=== PATIENT | female | born 1960 | race Caucasian/White ===

== ENCOUNTER 2019-05-07 07:59 | Outpatient (CLI) | payer OTHER, SELFPAY ==
--- NOTE | 2019-05-19 05:51 | SLEEP_ITS ---
Home Sleep Test DATE OF STUDY: 05/07/2019 ORDERING PHYSICIAN: Dolly Mensah MD. REASON FOR STUDY: Hypersomnolence, atrial fibrillation. HISTORY: This patient is a 58-year-old female, 67 inches tall, weighing 320 pounds with a body mass index of 50.1. She had atrial fibrillation and underwent cardioversion. She rarely snores and it is never loud enough that others complain about it. She does not have trouble sleeping with a cold. She does not wake up at night gasping for breath or have witnessed breathing problems reported to her by others. She rarely falls asleep during the daytime. She denies sweating excessively at night or noticing her heart pounding or beating irregularly at night. She does not fall asleep involuntarily or while driving. She does not have loss of muscle tone with strong emotion and does not have daytime difficulties due to excessive sleepiness. She does not have paralysis on waking or falling asleep and does not have vivid dreamlike scenes upon awakening or falling asleep. She is never afraid to go to sleep. She does not have nightmares. She rarely remembers her dreams. She occasionally has racing thoughts. She does not have feelings of sadness or depression. She occasionally has anxiety. She does not have muscular tension, noticed parts of her body jerking, does not kick at night and does not have crawly achy feelings in the legs. She does not have leg pain at night. She does not have morning jaw pain. She denies grinding her teeth. She is not bothered by pain during the day nor at night. She does not wake up feeling stiff in the morning with sore achy muscles. Bedtime is between 9:30 and 10, waking up once or more at night for 5 minutes. During this time, she will urinate. She wakes in the morning at 5 a.m. On weekends, she goes to bed between 11 and 12 and will awake between 6 and 7 a.m. She does not take naps. However, if she does take a nap, a short nap is refreshing. She feels better in the morning than other times of day. MEDICAL COMORBIDITIES: Hypertension, atrial fibrillation, hypothyroidism, chronic lower extremity edema, morbid obesity. MEDICATIONS: 1. Carvedilol 12.5 mg b.i.d. 2. Xarelto 20 mg a day. 3. Lisinopril 5 mg a day. 4. Synthroid 112 mcg, two 2 daily. HABITS: Never smoked tobacco. No caffeine or alcohol. No recreational drugs. DESCRIPTION OF THE STUDY: On the Hamilton Sleepiness Scale, her score is 5. This was conducted as an unattended portable home sleep test using 4 channel monitoring including respiratory effort channel, snoring channel, oxygen saturation channel, and heart rate channel. This study was scored using [facility] guidelines. Her Hamilton score is 5. Duration of the study is 6 hours 5 minutes. Her apnea-hypopnea index is 8. Her oxygen desaturation index is 7.4. Minimum desaturation is 80%. The patient had 47 hypopneas, 991 flow limited breaths without snoring, 57 flow limited breaths with snoring and 1323 snoring events. She had 48 desaturations and spent 20 minutes or 5% of the study below 88%. Her minimum pulse was 59, maximum pulse 97. IMPRESSION: 1. This home sleep test shows mild obstructive sleep apnea syndrome, G47.66 with an AHI of 8 and with her medical comorbidity including hypertension, she is a candidate to proceed with a CPAP titration. The patient had deep desaturations to 80% and these were periodic throughout the study associated with spikes in heart rate. She would be a better candidate for an in-lab study than autotitration based on her cardiac history. 2. Elevated body mass index 50.1, consistent with severe morbid obesity. 3. Atrial fibrillation. 4. Hypertension. 5. Chronic anticoagulation. 6. Hypothyroidism. 7. Chronic lower extremity edema.
== END 2019-05-07 08:00 | disposition home or self-care (01) ==
LOC: ANHCSM 08:00
PROVIDERS: PCP Family Medicine; Visit Provider Internal Medicine Cardiovascular Disease
DX: G47.10 Hypersomnia, unspecified (principal); I48.91 Unspecified atrial fibrillation; I48.0 Paroxysmal atrial fibrillation
CPT/HCPCS: 95806

== ENCOUNTER 2019-05-09 07:41 | Outpatient (CLI) | payer OTHER, SELFPAY ==
--- NOTE | ~2019-05-09 | MM_ITS ---
EXAMINATION: MM screening [facility] BI w marcellus HISTORY: Screening mammogram TECHNIQUE: Craniocaudal and mediolateral oblique 3-D tomosynthesis images were obtained and synthetic 2-D images were generated. CAD analysis was submitted and interpreted. COMPARISON: Comparison to multiple prior studies sequentially, with oldest reviewed study dated 03/2013. BREAST PARENCHYMAL COMPOSITION: There are scattered areas of fibroglandular density. FINDINGS: Stable bilateral breast mass cyst and benign-appearing calcifications. There is no evidence of suspicious mass, calcification, or architectural distortion to suggest malignancy in either breas t. There has been no suspicious interval change. IMPRESSION: 1. No mammographic evidence of malignancy. 2. Recommend routine screening mammography in one year. BI-RADS Category 2: Benign finding(s). Reviewed, dictated and finalized at location A. PER
== END 2019-05-09 07:42 | disposition home or self-care (01) ==
LOC: ANHIMG 07:42
PROVIDERS: PCP Family Medicine; Visit Provider Family Medicine
DX: Z12.31 Encounter for screening mammogram for malignant neoplasm of breast (principal)
CPT/HCPCS: 77063; 77067

== ENCOUNTER 2019-07-24 00:28 | Day surgery (SDC) | payer OTHER, SELFPAY ==
[2019-07-20 14:06] VITALS: BMI 51.7
[2019-07-24 07:32] VITALS: BMI 51.7
[2019-07-24 07:40] VITALS: BP 140/103; PULSE 81; RESP 16; TEMP 37.3; O2SAT 99
[2019-07-24] MEDS: LACTATED RINGERS 1,000 ML 150 ML IV CONT (07:55)
--- NOTE | 2019-07-24 08:16 | PM.HPGS ---
History of Present Illness History of Present Illness Consent: Risks, benefits, and alternatives have been discussed and questions answered. Patient agrees to proceed with procedure. Chief complaint: neoplasm screening Narrative: Deb Farris is a 59 year old female here for screening colonoscopy PMFSH Family History Family History Mother Patient's mother is in good health Father Family history of malignant melanoma Grandparent Family history of malignant neoplasm of breast Social History Social History Smoking status: Never smoker Alcohol intake: current Substance use: never Gender identity (if verbalized by the patient): Female Meds Home Medications and Allergies Home Medications Medication Instructions Recorded Confirmed Type Multivitamin 50 Plus 1 tablet PO DAILY 03/04/19 07/24/19 History Xarelto 20 mg PO QPM 03/04/19 07/24/19 History biotin 1 mg PO DAILY 03/04/19 07/24/19 History carvedilol 12.5 mg PO BID 03/04/19 07/24/19 History levothyroxine [Synthroid] 112 mcg PO DAILY 03/04/19 07/24/19 History lisinopril 5 mg PO DAILY 03/04/19 07/24/19 History melatonin 3 mg PO HS PRN 03/04/19 07/24/19 History potassium gluconate 550 mg PO DAILY 03/04/19 07/24/19 History zinc gluconate 50 mg PO DAILY 03/04/19 07/24/19 History Allergies Allergy/AdvReac Type Severity Reaction Status Date / Time No Known Allergies Allergy Verified 07/24/19 07:24 Vital Signs Vital Signs - 24 hr 07/24/19 07:40 Temperature 37.3 C Pulse Rate 81 Respiratory Rate 16 Blood Pressure 140/103 H Pulse Oximetry 99 Exam Resp: Auscultation: clear to auscultation bilaterally Cardio: Rate: regular rate Rhythm: regular rhythm GI: GI Palp: Yes Soft to palpation and No Tenderness to palpation present (GI) Assessment and Plan Assessment and plan (1) Colon cancer screening: Code(s): Z12.11 - Encounter for screening for malignant neoplasm of colon Status: Acute
--- NOTE | 2019-07-24 08:40 | P.PNAN_ITS ---
Anes - Initial Pre Proc Eval Procedure: Operation Date: 07/24/19 09:00 Proposed Procedures p Screening Colonoscopy - David Morton MD Date/Time: 07/24/19 08:40 Surgeon: David Morton MD Pre Op Diagnosis: neoplasm screening Patient Data Age: 59 Gender: F Height: 5 ft 7 in Weight: 150 kg Last Vital Signs Temp 37.3 C 07/24/19 07:40 Pulse 81 07/24/19 07:40 Resp 16 07/24/19 07:40 BP 140/103 H 07/24/19 07:40 Pulse Ox 99 07/24/19 07:40 Allergies Allergy/AdvReac Type Severity Reaction Status Date / Time No Known Allergies Allergy Verified 07/24/19 07:24 Home Medications Medication Instructions Recorded Confirmed Type Multivitamin 50 Plus 1 tablet PO DAILY 03/04/19 07/24/19 History Xarelto 20 mg PO QPM 03/04/19 07/24/19 History biotin 1 mg PO DAILY 03/04/19 07/24/19 History carvedilol 12.5 mg PO BID 03/04/19 07/24/19 History levothyroxine [Synthroid] 112 mcg PO DAILY 03/04/19 07/24/19 History lisinopril 5 mg PO DAILY 03/04/19 07/24/19 History melatonin 3 mg PO HS PRN 03/04/19 07/24/19 History potassium gluconate 550 mg PO DAILY 03/04/19 07/24/19 History zinc gluconate 50 mg PO DAILY 03/04/19 07/24/19 History Patient hx anesthesia problems: none Family hx anesthesia problems: none [facility] Past Medical History Medical History Atrial fibrillation Obesity Family History Family History Mother Patient's mother is in good health Father Family history of malignant melanoma Grandparent Family history of malignant neoplasm of breast Social History Social History Smoking status: Never smoker Alcohol intake: current Substance use: never Gender identity (if verbalized by the patient): Female Anes - Eval Final PreProcedure Day of Procedure 07/24/19 08:40 Patient weight: morbidly obese Heart: regular rate and rhythm Lungs: clear to auscultation Airway: Mallampati scale class II Neurological: alert and oriented Last oral intake: >/= 8 hours ASA classification: III Emergent: no Anesthetic plan: proceed Anesthesia type and monitoring: general GIVS and standard monitoring Informed Consent: The patient's anesthetic plan and its attendant risks and benefits were discussed with the patient/family/POA. Questions were solicited and answers provided to the satisfaction of the patient/family/POA.
[2019-07-24 09:12] VITALS: BP 121/68; PULSE 70; RESP 24; O2SAT 99
[2019-07-24 09:20] VITALS: BP 119/68; PULSE 66; RESP 16; O2SAT 100
[2019-07-24 09:30] VITALS: BP 140/76; PULSE 67; RESP 16; O2SAT 100
== END 2019-07-24 09:45 | disposition home or self-care (01) ==
PROVIDERS: PCP Family Medicine; Visit Provider Internal Medicine Gastroenterology
PROC: 0DJD8ZZ Inspection of Lower Intestinal Tract, Via Natural or Artificial Opening Endoscopic (ICD-10-PCS; CPT 45378; principal; 2019-07-24 09:00)
DX: Z12.11 Encounter for screening for malignant neoplasm of colon (principal); K63.5 Polyp of colon; I48.91 Unspecified atrial fibrillation; Z79.01 Long term (current) use of anticoagulants; E66.01 Morbid (severe) obesity due to excess calories; Z68.43 Body mass index [BMI] 50.0-59.9, adult
CPT/HCPCS: 45380; 88305; J2704; J7120

== ENCOUNTER → 2021-10-31 10:46 | Outpatient (CLI) | payer OTHER, SELFPAY ==
--- NOTE | ~2021-10-31 | CT_ITS ---
EXAMINATION: CT abdomen wo/w con DATE: 10/31/2021 11:31 INDICATION: Kidney mass. TECHNIQUE: Computed tomography (CT) of the abdomen was performed without and with 100 mL Omnipaque 35 0 intravenous contrast. Automated exposure control and iterative reconstruction technique were employ ed. The dose-length product was 1601.38 mGy-cm. COMPARISON: None. FINDINGS: The visualized portions of the lung bases demonstrate mild atelectasis. No pleural effusion . The heart size is normal. No pericardial effusion. The liver is normal. There are gallstones in the gallbladder, which is normal in size. There is splenomegaly measuring 19.8 cm. The pancreas and left adrenal gland are normal. There is a 3.5 cm mass in right adrenal gland measuring low-attenuation, c onsistent with an adenoma. Right kidney is normal. There is a 5.1 cm enhancing mass in left kidney, c onsistent with renal cell carcinoma. There are no dilated loops of bowel. There are no pathologically enlarged lymph nodes. There is no free intraperitoneal fluid. There is a benign bone island in right ilium. There is mild thoracolumbar spondylosis. There is a chronic compression fracture of L4. IMPRESSION: 1. 5.1 cm enhancing mass in left kidney, consistent with renal cell carcinoma. 2. Splenomegaly. Reviewed, dictated and finalized at location A.
[2021-10-31 11:10] LABS: Estimated Glomerular Filt Rate > 60
== END ==
PROVIDERS: PCP Family Medicine; Visit Provider Family Medicine
DX: N28.89 Other specified disorders of kidney and ureter (principal); R16.1 Splenomegaly, not elsewhere classified
CPT/HCPCS: 74170; Q9967

== ENCOUNTER 2022-01-13 08:49 | Outpatient (CLI) | payer OTHER, SELFPAY ==
--- NOTE | ~2022-01-13 | DEXA_ITS ---
Bone Density Report Name: ANDIE PATEL Age: 61 Sex: Female Ethnicity: White Date of : 1960 Indication: postmenopausal; screening for osteoporosis; height loss; prior fracture; cancer; hysterectomy; Referring Provider: CHICO ALCANTARA Study: Bone densitometry was performed. Exam Date: January 13, 2022 Accession number: [id number] Bone Density: Region BMD T-score Z-score Classification AP Spine(L1, L2, L3) 0.549 -4.3 -2.7 Osteoporosis Femoral Neck (Left) 0.446 -3.6 -2.2 Osteoporosis Total Hip (Left) 0.493 -3.7 -2.6 Osteoporosis Femoral Neck (Right) 0.438 -3.7 -2.3 Osteoporosis Total Hip (Right) 0.530 -3.4 -2.3 Osteoporosis Total Hip Mean 0.511 -3.6 -2.5 Osteoporosis World Health Organization criteria for BMD impression classify patients as: Normal (T-score at or above -1.0), Osteopenia (T-score between -1.0 and -2.5), or Osteoporosis (T-score at or below -2.5). 10-year Fracture Risk: FRAX not reported because: Some T-score for Spine Total or Hip Total or Femoral Neck at or below -2.5 Clinical Information Provided by Patient: Have had a previous hip or vertebral fracture Has had a low trauma fracture Has the following medical conditions: Cancer, Hysterectomy Patient maximum height was 67 Menopause Age: 38 No regular weight bearing exercise Does not regularly consume dairy products Onset of menses at age 13 Number of children 0 Impression: The patient has established osteoporosis, based on the Total Spine T-score and the existence of a prior fracture. The patient has risk factors, including: previous fracture. Discussion: HIGH RISK OF FRACTURE. BONE DENSITY IS UNDESIRABLY LOW AT ONE OR MORE SKELETAL SITES, CONSISTENT WITH POSTMENOPAUSAL OSTEOPOROSIS. This patient's lowest T-score, in a patient who has previously fractured, meets the World Health Organization's (WHO) criteria for severe osteoporosis. In untreated patients, the risk of osteoporotic fracture increases approximately two-fold for each 1.0 SD decrease in T-score. Low bone density is not the only risk factor for fracture; also consider factors such as patient's age, frailty or poor health, risk of falling, risk of injury, previous osteoporotic fracture, family history of osteoporosis, cigarette smoking, low body weight, etc. Not everyone with low bone mineral density has osteoporosis; osteomalacia and other metabolic bone disorders should also be considered. Patients who have osteoporosis should be evaluated for specific diseases and conditions (secondary causes) that may cause or contribute to bone loss. The [place] [employer]ocrin[employer] (AACE) and National Osteoporosis Foundation (NOF) recommend pharmacologic intervention for all postmenopausal women with a previous hip or vertebral fracture and a T-score in this r
--- NOTE | ~2022-01-13 | MM_ITS ---
EXAMINATION: MM screening [facility] BI w marcellus HISTORY: Screening TECHNIQUE: Craniocaudal and mediolateral oblique 3-D tomosynthesis images were obtained and synthetic 2-D images were generated. CAD analysis was submitted and interpreted. COMPARISON: Comparison to multiple prior studies sequentially, with oldest reviewed study dated 02/15. BREAST PARENCHYMAL COMPOSITION: There are scattered areas of fibroglandular density. FINDINGS: There are stable bilateral breast masses and calcifications overlying for differences of te chnique. There is no evidence of suspicious mass, calcification, or architectural distortion to sugge st malignancy in either breast. There has been no suspicious interval change. IMPRESSION: 1. No mammographic evidence of malignancy. 2. Recommend routine screening mammography in one year. BI-RADS Category 2: Benign finding(s). Reviewed, dictated and finalized at location A.
== END 2022-01-13 08:50 | disposition home or self-care (01) ==
PROVIDERS: PCP Family Medicine; Visit Provider Family Medicine
DX: Z12.31 Encounter for screening mammogram for malignant neoplasm of breast (principal); Z78.0 Asymptomatic menopausal state; M81.0 Age-related osteoporosis without current pathological fracture
CPT/HCPCS: 77063; 77067; 77080

== ENCOUNTER → 2022-09-05 09:09 | Outpatient (CLI) | payer OTHER, SELFPAY ==
--- NOTE | ~2022-09-05 | CT_ITS ---
CT of the Abdomen and Pelvis: Indication: Renal cell carcinoma Technique: 2.5 mm axial scans were obtained through the abdomen and pelvis following intravenous adm inistration of 100 cc of Omnipaque 350. Dose reduction technique was used on this scan by utilizing a utomated exposure control and iterative reconstruction technique. The dose-length product (DLP) was 1 097.73 mGy-cm. COMPARISON: 10/31/2021 Findings: Scans through the lung bases are unremarkable. The liver, pancreas, gallbladder, right kidney, and left adrenal gland are within normal limits. 3.5 cm low-density right adrenal nodule is consistent with adenoma, unchanged. Patient is status post lef t nephrectomy. Spleen is enlarged, measuring 18 cm in length. No evidence of aortic aneurysm. No lym phadenopathy. No bowel obstruction or bowel wall thickening. There is no evidence to suggest acute appendicitis. Images through the pelvis were performed. Urinary bladder unremarkable. No pelvic mass evident. No as cites. L4 compression fracture is present, age-indeterminate. Impression: No definite evidence for active malignancy or metastatic disease. Stable splenomegaly, of uncertain etiology. L4 compression fracture, age-indeterminate. Stable right adrenal adenoma. Status post left nephrectomy. Reviewed, dictated and finalized at location . Impression: No definite evidence for active malignancy or metastatic disease. Stable splenomegaly, of uncertain etiology. L4 compression fracture, age-indeterminate. Stable right adrenal adenoma. Status post left nephrectomy.
[2022-09-05 09:30] LABS: Estimated Glomerular Filt Rate 38
== END ==
PROVIDERS: PCP Family Medicine; Visit Provider Physician Assistant
DX: C64.9 Malignant neoplasm of unspecified kidney, except renal pelvis (principal); D35.01 Benign neoplasm of right adrenal gland
CPT/HCPCS: 74177; Q9967

== ENCOUNTER 2023-01-21 08:13 | Outpatient (CLI) | payer OTHER, SELFPAY ==
--- NOTE | ~2023-01-21 | XR_ITS ---
Clinical Indication: Renal carcinoma PA and lateral views of the chest: Comparison: 10/26/2013 Findings: The lungs are clear, without evidence of focal consolidation or pleural effusion. Cardiome diastinal silhouette is within normal limits. Bones and soft tissues are unremarkable. Impression: Normal chest. Reviewed, dictated and finalized at location . HAND HELPER Impression: Normal chest.
--- NOTE | ~2023-01-21 | NM_ITS ---
EXAMINATION: NM bone scan whole body DATE: 01/21/2023 12:31 INDICATION: Malignant neoplasm of the left kidney. TECHNIQUE: 25.7 mCi Tc-99m HDP was administered intravenously. Delayed whole-body scintigrams were o btained. COMPARISON: Chest radiograph dated 01/21/[address] abdomen and pelvis dated 09/05/2022 FINDINGS: There are 2 foci of relatively intense uptake anteriorly at couple consecutive left ribs, likely the sixth and seventh the proximity of the lesions favoring rib fractures. There is unable to be definiti vely identified on the plain radiographs. Likely degenerative joint centered uptake at the right acro mioclavicular joint and bilateral knees, feet and ankles. No other suspicious bone lesions identified . Absent left renal shadow consistent with prior left nephrectomy. IMPRESSION: 1. A couple foci of prominent uptake at the anterior left sixth and seventh ribs with no other suspic ious bone lesions which along with the pattern favors rib fractures over metastatic disease. Correlat e for pain or history of prior trauma to this location. 2. Status post left nephrectomy. Reviewed, dictated and finalized at location A. F RADIOLOGIC TECHNOLOGIST IMPRESSION: 1. A couple foci of prominent uptake at the anterior left sixth and seventh rib s with no other suspicious bone lesions which along with the pattern favors rib fractures over metastatic disease. Correlate for pain or history of prior trau ma to this location. 2. Status post left nephrectomy.
== END 2023-01-21 08:14 | disposition home or self-care (01) ==
LOC: ANHIMG 08:20
PROVIDERS: PCP Family Medicine; Visit Provider Urology
DX: C64.2 Malignant neoplasm of left kidney, except renal pelvis (principal); Z90.5 Acquired absence of kidney
CPT/HCPCS: 71046; 78306; A9503

== ENCOUNTER 2023-02-04 14:01 | Outpatient (CLI) | payer OTHER, SELFPAY ==
--- NOTE | ~2023-02-04 | MM_ITS ---
EXAMINATION: MM screening [facility] BI w marcellus HISTORY: Screening mammogram TECHNIQUE: Craniocaudal and mediolateral oblique 3-D tomosynthesis images were obtained and synthetic 2-D images were generated. CAD analysis was submitted and interpreted. COMPARISON: 01/13/2022, 05/09/2019 bilateral screening mammogram examinations BREAST PARENCHYMAL COMPOSITION: There are scattered areas of fibroglandular density. FINDINGS: Stable bilateral circumscribed masses with calcifications and left benign calcified microhe matomas. There is no evidence of suspicious mass, calcification, or architectural distortion to sugge st malignancy in either breast. There has been no suspicious interval change. IMPRESSION: 1. Benign findings. No mammographic evidence of malignancy. 2. Recommend routine screening mammography in one year. BI-RADS Category 2: Benign finding(s). Reviewed, dictated and finalized at location A. UNTS ADJUSTABLE CLERK
== END 2023-02-04 14:02 | disposition home or self-care (01) ==
LOC: ANHIMG 14:03
PROVIDERS: PCP Family Medicine; Visit Provider Physician Assistant
DX: Z12.31 Encounter for screening mammogram for malignant neoplasm of breast (principal)
CPT/HCPCS: 77063; 77067

== ENCOUNTER 2023-12-16 12:54 | Outpatient (CLI) | payer OTHER, SELFPAY ==
--- NOTE | ~2023-12-16 | XR_ITS ---
XR chest 2V Ordering provider: Filiberto Elder MD History: 63 years Female with . MAL REJI OF LEFT KIDNEY, ANNUAL. NO COMPLAINTS . Comparison: None. FINDINGS: MEDIASTINUM: The cardiac silhouette is not enlarged. Congestive chela. LUNGS: No infiltrates, effusions or pneumothorax. Prominent markings in the lower lobes. OTHER: No free air under the diaphragm. IMPRESSION: No acute cardiopulmonary pathology. Reviewed, dictated and finalized at location A.
== END 2023-12-16 12:55 | disposition home or self-care (01) ==
PROVIDERS: PCP Family Medicine; Visit Provider Urology
DX: C64.2 Malignant neoplasm of left kidney, except renal pelvis (principal)
CPT/HCPCS: 71046

== ENCOUNTER 2024-04-16 15:38 | Outpatient (CLI) | payer OTHER, SELFPAY ==
--- NOTE | ~2024-04-16 | MM_ITS ---
EXAMINATION: MM screening bridgette BI w marcellus HISTORY: Screening TECHNIQUE: Craniocaudal and mediolateral oblique 3-D tomosynthesis images were obtained and synthetic 2-D images were generated. CAD analysis was submitted and interpreted. COMPARISON: Comparison to multiple prior studies sequentially, with oldest reviewed study dated 02/15. BREAST PARENCHYMAL COMPOSITION: Not dense: There are scattered areas of fibroglandular density. FINDINGS: Stable bilateral circumscribed masses with associated coarse calcifications. No new masses, calcifications or architectural distortion in either breast to suggest malignancy. No suspicious int erval change. IMPRESSION: 1. No mammographic evidence of malignancy. 2. Recommend routine screening mammography in one year. BI-RADS Category 2: Benign finding(s). Reviewed, dictated and finalized at location A. RSIFIED CROPS I FARMWORKER
--- OUTSIDE RECORDS SUMMARY | 2024-04-16 15:45 | XMS_ITS | Referral Summary ---
Author Organization [facility] [address] Address [address] [place] [address] Care Team Providers Care Gelatin Maker Utility Name Role Phone Stacey Jay MD Primary Care Provider Filiberto Elder MD Unavailable [phone] Allergies No known active allergies Medications biotin 1 mg tablet Take 1 tablet (1,000 mcg total) by mouth daily Active zinc 50 mg tablet Take 1 tablet by mouth daily Active multivitamin capsule Take 1 capsule by mouth daily Active levothyroxine (SYNTHROID) 175 mcg tablet 2 Active alendronate (FOSAMAX) 70 mg tablet Take 1 tablet (70 mg total) by mouth once a week 2 Active cholecalcifero l 25 mcg (1,000 unit) tablet Take 1 tablet (1,000 Units total) by mouth daily Active lisinopriL (PRINIVIL,ZEST RIL) 5 mg tablet Take 1 tablet by mouth once daily 90 tablet 3 4 Active Xarelto 20 mg tablet Take 1 tablet by mouth once daily 90 tablet 4 Active sotaloL (BETAPACE) 120 mg tablet Take 1 tablet by mouth twice daily 180 tablet 5 Active sotaloL (BETAPACE) 120 mg tablet Take 1 tablet by mouth twice daily 180 tablet 4 03/25/19 25 Discontinued Active Problems Problem Noted Date Diagnosed Date Renal mass 12/27/2021 Renal mass, left 12/07/2021 Overview (12/07/2021): Added automatically from request for surgery [id number] Essential 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 Patient verbalized understanding. -while she remains on this medication she will require an EKG every 6 months to monitor for toxicity -EKG today does not demonstrate any changes that would prohibit the use of sotalol Assessment & Plan (03/04/2023 4:24 PM ELECTRIC WELL LOGGING OPERATOR): -remains compliant on sotalol -no medication changes were made today -while she remains on this medication she will require an EKG every 6 months to monitor for toxicity -EKG today does not demonstrate any changes that would prohibit the use of sotalol Anticoagulation management encounter 12/12/2019 Assessment & Plan (09/16/2023 1:07 PM CDT): -remains compliant on Xarelto therapy -denies any issues with bruising or bleeding -recommend continued therapy for thromboprophylaxis Assessment & Plan (03/04/2023 4:24 PM ELECTRIC WELL LOGGING OPERATOR): -remains compliant on Xarelto therapy -denies any issues with bruising or bleeding -recommend continued therapy for thromboprophylaxis Assessment & Plan (12/12/2019 12:32 PM CDT): The patient has a [id number] score of 1 (annualized risk of stroke 1%). Have recommended anticoagulation in anticipation of cardioversion. However, in the long-term, the patient may not require. Cardiomyopathy 02/23/2019 Atrial fibrillation (CMS/HCC) 01/05/2019 Assessment & Plan (09/16/2023 1:17 PM CDT): -symptomatic paroxysmal atrial fibrillation -maintaining sinus rhythm on sotalol, atrial arrhythmia burden remains low -remains compliant on Xarelto and sotalol -no medication changes were made today -EKG today demonstrates sinus rhythm (58) -follow up in 6 months for 12 lead EKG and clinic visit Assessment & Plan (03/04/2023 4:23 PM ELECTRIC WELL LOGGING OPERATOR): -history of cardioversion -presents today denying any symptoms related to an atrial arrhythmia or recurrence of her atrial arrhythmia -remains compliant on sotalol and Xarelto -no medication changes were made today -EKG today demonstrates sinus rhythm (58) -follow-up in 6 months for 12 lead EKG and clinic visit Other specified hypothyroidism 01/05/2019 Bilateral lower extremity edema 01/05/2019 Morbid obesity 01/05/2019 Resolved Problems Problem Noted Date Diagnosed Date Resolved Date Persistent atrial fibrillation 12/12/2019 04/11/2020 Assessment & Plan (12/12/2019 12:31 PM CDT): Symptomatic persistent atrial fibrillation. We discussed options for management, and I recommended that the patient undergo cardioversion on antiarrhythmic drug therapy. I recommended that the patient discontinue carvedilol, and initiate therapy with low dose sotalol (80 mg twice daily). After 2-3 doses, we will obtain an ECG, in order to ensure that the patient is tolerating this medication without excessive QT prolongation. If the medication is tolerated, we will likely advance the dose (to a target of 120 mg) and repeat an ECG again after several doses. We will plan cardioversion after the patient is at target dose. Explained the risks and benefits and she would like to proceed. Catheter ablation can be considered if she experiences recurrence despite antiarrhythmic drug therapy. Her obesity may make this procedure higher risk. Social History Tobacco Use Types Packs/Day Years Used Date Smoking Tobacco: Never Smokeless Tobacco: Never Tobacco Cessation:Counseling Given: Not Answered Alcohol Use Standard Drinks/Week Comments Not Currently 0 (1 standard drink = 0.6 oz pur e alcohol) AUDIT-C Answer Date Recorded Q1: How often do you have a drink containing alcohol? Never 12/18/2021 Q2: How many drinks containi ng alcohol do you have on a typical day when you are drinking? Patient does not drink Q3: How often do you have si x or more drinks on one occasion? Never 12/18/2021 Comments No Sex and Gender Information Value Date Recorded Sex Assigned at Not on file Legal Sex Female 10:41 PM ELECTRIC WELL LOGGING OPERATOR Gender Identity Not on file Sexual Orientation Not on file Last Filed Vital Signs Vital Sign Reading Time Taken Comments Blood Pressure 120/60 10/21/2023 10:00 AM CDT Pulse 72 10/21/2023 10:00 AM CDT Temperature 36.5 ??C (97.7 ??F) 12/28/2021 1 1:28 AM CDT Respiratory Rate 16 12/28/2021 11:2 8 AM CDT Oxygen Saturation 98% 10/21/2023 10: 00 AM CDT Inhaled Oxygen Concentration - - Weight 161.8 kg (356 lb 12.8 oz) 2023 10:00 AM CDT Height 167.6 cm (5' 6 ) 10/21/2023 10:0 0 AM CDT Body Mass Index 57.59 10/21/2023 10:00 AM CDT Plan of Treatment [place] [address] [facility] [place] [address] COMMERCIAL GENERIC WORKERS COMPENSATION GENERIC [facility] [employer] GAP Advance Directives For more information, please contact: [phone] * Full Code (Latest Code Status on File) Date Activated Date Inactivated Comments 12/27/2021 7:19 PM 12/28/2021 8:10 PM Care Teams Gelatin Maker Utility Relationship Specialty Start Date End Date Stacey Jay MD [address] [facility] [address] [place] [address] PCP - General Family Medicine 12/01/18 [place] [address] [facility] [address] [place] [address] Consulting Physician Urology 12/28/21
--- OUTSIDE RECORDS SUMMARY | 2024-04-16 15:46 | XMS_ITS | Referral Summary ---
Author Organization [facility] [employer] Address [address] [place] [address] Care Team Providers Care Director Center Name Role Phone Stacey Jay MD Primary Care Provider + Source Comments [facility] [employer],non-owned Affiliates and Associated Physician Practices is amultiple site organization consisting of ambulatory clinics and hospital sitesin [place], [place], [place] and [place]. This disclosure is being madepursuant to the Care Everywhere program and may not contain all information available regarding this patient. Last updated 17.[facility] [employer] Allergies No known active allergies Medications * Be aware that medications may not be up to date on this document. Alwaysverify current medications with the patient. Medication Sig Dispensed Refills Start Date End Date Status XARELTO 20 MG tablet TK 1 T PO QD WITH THE OMEGA MEAL 3 12/15/2018 Active lisinopril (PRINIVIL;ZESTRIL) 5 MG tablet Take 5 mg by mouth once daily 03/21/2019 Active sotalol (BETAPACE) 120 MG tablet Take 120 mg by mouth 2 times daily 12/29/2019 Active Potassium Gluconate 2.5 MEQ Take 99 mg by mouth once daily Active levothyroxine (Synthroid) 175 MCG tabletIndications:Acqui red hypothyroidism Take 1 (one) tablet by mouth once daily 90 tablet 4 01/18/2022 Active Active Problems Problem Noted Date Diagnosed Date Renal cancer 01/18/2022 Renal mass 12/07/2021 Overview (01/18/2022): Added automatically from request for surgery [id number] Essential hypertension 04/11/2020 Persistent atrial fibrillation 12/12/2019 Overview (02/04/2020): Last Assessment & Plan: Symptomatic persistent atrial fibrillation. We discussed options [...] obesity may make this procedure higher risk. Cardiomyopathy 02/23/2019 Bilateral lower extremity edema 01/05/2019 Morbid obesity 01/05/2019 Paroxysmal atrial fibrillation 01/05/2019 Other specified hypothyroidism 01/05/2019 Hypothyroidism 12/30/2014 Cataract 06/11/2011 Immunizations Name Administration Dates Next Due INFLUENZA VACCINE, TRIV. (AF LURIA, FLUZONE TRIVALENT; 6MO+) (IIV3) 12/17/2015,01/07/2013,01/16/2011 INFLUENZA VACCINE 12/15/2018 Social History Tobacco Use Types Packs/Day Years Used Date Smoking Tobacco: Never Smokeless Tobacco: Never Tobacco Cessation:Counseling Given: Not Answered Alcohol Use Standard Drinks/Week Comments Yes 0 (1 standard drink = 0.6 oz pur e alcohol) Sex and Gender Information Value Date Recorded Sex Assigned at Not on file Gender Identity Not on file Sexual Orientation Not on file Last Filed Vital Signs Vital Sign Reading Time Taken Comments Blood Pressure 114/68 01/18/2022 10:15 AM CDT Pulse 55 01/18/2022 10:15 AM CDT Temperature 36.6 ??C (97.8 ??F) 01/18/2022 1 0:15 AM CDT Respiratory Rate 20 01/19/2021 11:3 1 AM CDT Oxygen Saturation 99% 01/18/2022 10: 15 AM CDT Inhaled Oxygen Concentration - - Weight 162.8 kg (358 lb 12.8 oz) 2021 10:15 AM CDT Height 167.6 cm (5' 6 ) 01/18/2022 10:1 5 AM CDT Body Mass Index 57.91 01/18/2022 10:15 AM CDT Plan of Treatment Not on file Care Teams Director Center Relationship Specialty Start Date End Date Stacey Jay MD [address] [place] [address] PCP - General 02/03/15
--- OUTSIDE RECORDS SUMMARY | 2024-04-16 15:46 | XMS_ITS | Clinical Summary ---
Author Organization [facility] Address [address] [place] [address]. [place], [place] [address] [place] [address] Care Team Providers Care Picture Engraver Name Role Phone Unavailable Primary Care Provider Unavailabl e Social History Tobacco Use Types Packs/Day Years Used Date Smoking Tobacco: Never Assessed Comments Unknown Sex and Gender Information Value Date Recorded Sex Assigned at Not on file Legal Sex Female 8:17 PM CDT Gender Identity Not on file Sexual Orientation Not on file Plan of Treatment Health Maintenance Due Date Last Done Comments Cervical Cancer Screening Pa p Smear (Age 30 to 64) Every 3 Years 1959 Colorectal Cancer Screening Colonoscopy (10 Years) 1959 Annual Physical 07/15/1962 Hepatitis C 07/15/1977 DTaP, Tdap and Td Vaccines ( 1 - Tdap) 07/15/1978 Cervical Cancer Screening Pa p with HPV Testing (Age 30 to 64) Every 5 Years 07/15/1989 Cervical Cancer Screening with HPV 07/15/1989 Mammogram Screening 1999 Zoster Vaccines (1 of 2) 07/15/2009 COVID-19 Vaccine (2023-2 5 season) 2023 Influenza Adult (#1) 2023 RSV Immunization or 60+ Years (1 - 1-dose 75+ series) 07/15/2034 Meningococcal B Vaccine Aged Out No l onger eligible based on patient's age to complete this topic Meningococcal Vaccine Aged Out No catracho porsche eligible based on patient's age to complete this topic Pneumococcal Vaccine: Pediat rics (0 to 5 Years) and At-Risk Patients (6 to 64 Years) Aged Out No longer eligible b ased on patient's age to complete this topic RSV Immunizations Under 20 Months Aged Out No longer eligible based on patient's age to complete this topic
--- OUTSIDE RECORDS SUMMARY | 2024-04-16 15:46 | XMS_ITS | Clinical Summary ---
Author Organization [facility] [employer] Address [address] [place] [address] Care Team Providers Care Tipple Operator Name Role Phone Stacey Jay MD Primary Care Provider + Source Comments [facility] [employer],non-owned Affiliates and Associated Physician Practices is amultiple site organization consisting of ambulatory clinics and hospital sitesin [place], [place], [place] and [place]. This disclosure is being madepursuant to the Care Everywhere program and may not contain all information available regarding this patient. Last updated 17.[facility] [employer] Allergies No known active allergies Medications * [...] (01/18/2022): Added automatically from request for surgery [id number] Essential hypertension 04/11/2020 Persistent atrial fibrillation 12/12/2019 [...] TRIVALENT; 6MO+) (IIV3) 12/17/2015,01/07/2013,01/16/2011 INFLUENZA VACCINE 12/15/2018 Family History Medical History Relation Name Comments None Known Brother Status: Alive None Known Father Status: Alive CAD (Coronary Artery Disease) Maternal Grandfather Cancer Maternal Grandmother breast cancer Diabetes Maternal Grandmother None Known Mother Status: Alive Thyroid Disease Paternal Grandmother None Known Sister 2 Sisters Status: Alive Asthma Neg Hx CVA Neg Hx High Cholesterol Neg Hx Hypertension Neg Hx Kidney Disease Neg Hx Migraine Neg Hx Osteoporosis Neg Hx Seizures Neg Hx Relation Name Status Comments Brother Father Maternal Grandfather Maternal Grandmother Mother Paternal Grandmother Sister 2 Sisters Social History Tobacco Use Types Packs/Day Years [...] 01/18/2022 10:15 AM CDT Plan of Treatment Health Maintenance Due Date Last Done Comments COLOGUARD (AGES 45-75) - COLON CA SCREENING 1959 COLON MONITORING 1959 COLONOSCOPY - COLON CA SCREENING 1959 CT COLONOGRAPHY - COLON CA SCREENING 1959 Colorectal Cancer Screening 1959 FIT - COLON CA SCREENING 1959 FLEX SIG - COLON CA SCREENING 1959 LIPID TESTING 1959 MAMMOGRAM 1959 PAP SMEAR 1959 HIV SCREENING 07/15/1974 HEPATITIS C SCREENING 07/11/1977 DTAP/TDAP/TD VACCINES (1 - Tdap) 07/15/1978 PNEUMOCOCCAL VACCINE 50+ (1 of 1 - PCV) 07/15/2009 ZOSTER VACCINE (1 of 2) 07/15/2009 Respiratory Syncytial Virus (RSV) Vaccine Pt: or over 60 yrs (1 - Risk 60-74 years 1-dose series) 2019 SCREENING FOR DIABETES 01/18/2022 COVID-19 VACCINE ( season) 2023 03/02/2021, 06/05/2020, 05/13/2020 INFLUENZA VACCINE (#1) 2023 2, 12/15/2018, 12/17/2015, Additional history exists DEPRESSION SCREENING 03/18/2024 HEPATITIS B VACCINE Aged Out No longe r eligible based on patient's age to complete this topic HIB VACCINE Aged Out No longer eligi ble based on patient's age to complete this topic HPV VACCINE Aged Out No longer eligi ble based on patient's age to complete this topic MENINGOCOCCAL (Group B) VACCINE Aged Out No longer eligible based on patient's age to complete this topic MENINGOCOCCAL VACCINE Aged Out No catracho porsche eligible based on patient's age to complete this topic PNEUMOCOCCAL VACCINE Aged Out No long er eligible based on patient's age to complete this topic Care Teams Tipple Operator Relationship Specialty Start Date End Date Stacey Jay MD [address] [facility] [address] [place] [address] PCP - General 02/03/15
--- OUTSIDE RECORDS SUMMARY | 2024-04-16 15:46 | XMS_ITS | Patient Health Summary ---
Author Organization [facility] Address [address] [place] [address] Care Team Providers Care Ssn/Ssbn Assistant Navigator Name Role Phone Stacey Jay MD Primary Care Provider + Note from [facility],non-owned Affiliates and Associated Physician Practices is amultiple site organization consisting of ambulatory clinics and hospital sitesin [place], [place], [place] and [place]. This disclosure is being madepursuant to the Care Everywhere program and may not contain all information available regarding this patient. Last updated 17.[facility] Allergies No known active allergies Medications * Be aware that medications may not be up to date on this document. Alwaysverify current medications with the patient. * XARELTO 20 MG tablet(Started 12/15/2018) TK 1 T PO QD WITH THE OMEGA MEAL 3 refills left * lisinopril (PRINIVIL;ZESTRIL) 5 MG tablet(Started 03/21/2019) Take 5 mg by mouth once daily * sotalol (BETAPACE) 120 MG tablet(Started 12/29/2019) Take 120 mg by mouth 2 times daily * Potassium Gluconate 2.5 MEQ Take 99 mg by mouth once daily * levothyroxine (Synthroid) 175 MCG tablet(Started 01/18/2022) Take 1 (one) tablet by mouth once daily 4 refills by 01/18/2023 Active Problems Problem Noted Date Diagnosed Date Renal cancer 01/18/2022 Renal mass 12/07/2021 Essential hypertension 04/11/2020 Persistent atrial fibrillation 12/12/2019 Cardiomyopathy 02/23/2019 Bilateral lower extremity edema 01/05/2019 Morbid obesity 01/05/2019 Paroxysmal atrial fibrillation 01/05/2019 Other specified hypothyroidism 01/05/2019 Hypothyroidism 12/30/2014 Cataract 06/11/2011 Immunizations * INFLUENZA VACCINE, TRIV. (AFLURIA, FLUZONE TRIVALENT; 6MO+) (IIV3)(Given 12/17/2015, 01/07/2013, 01/16/2011) * INFLUENZA VACCINE(Given 12/15/2018) Social History Tobacco Use Types Packs/Day Years [...] Mass Index 57.91 01/18/2022 10:15 AM CDT Procedures * TSH(Performed 05/14/2022) Performed for Acquired hypothyroidism * TSH(Performed 01/15/2022) Performed for Acquired hypothyroidism * TSH(Performed 05/22/2021) Performed for Acquired hypothyroidism * TSH(Performed 03/16/2021) Performed for Acquired hypothyroidism * TSH(Performed 01/09/2021) Performed for Acquired hypothyroidism * TSH(Performed 08/06/2020) Performed for Acquired hypothyroidism * TSH(Performed 06/04/2020) Performed for Acquired hypothyroidism * TSH(Performed 03/30/2020) Performed for Acquired hypothyroidism * TSH(Performed 01/22/2020) Performed for Acquired hypothyroidism * TSH(Performed 04/04/2019) Performed for Acquired hypothyroidism * TSH(Performed 01/24/2019) Performed for Acquired hypothyroidism * TSH(Performed 04/19/2018) Performed for Acquired hypothyroidism * TSH(Performed 02/12/2018) * TSH(Performed 02/02/2017) * TSH(Performed 02/04/2016) * TSH(Performed 01/22/2015) * TSH(Performed 03/30/2014) * TSH(Performed 01/20/2014) * TSH(Performed 10/24/2013) * TSH(Performed 08/05/2013) * TSH(Performed 01/13/2013) * TSH(Performed 06/13/2012) * TSH(Performed 04/19/2012) * TSH(Performed 01/05/2012) * TSH(Performed 01/06/2011) * TSH(Performed 07/07/2010) * TSH(Performed 04/15/2010) * LAB HISTORICAL RESULTS-ONBASE(Performed 02/24/2010) * LAB HISTORICAL RESULTS-ONBASE(Performed 02/24/2010) * LAB HISTORICAL RESULTS-ONBASE(Performed 02/24/2010) * TSH(Performed 02/18/2010) * TSH(Performed 05/09/2009) Results * TSH (05/14/2022 3:38 PM CEMENTER HELPER) Only the most recent of29 resultswithin the time period is included. TSH 1.460 0.450 - 4.500 uIU/mL [facility] INSURANCE BILL Blood BLOOD SPECIMEN / Unknown 05/14/2022 3:38 PM CEMENTER HELPER 05/14/2022 Narrative Resulting Agency Comment Lab [facility]: [facility] [address] [facility] [id number] Clement Bass MD LAB - CHEMISTRY ORD ERABLES [facility] INSURANCE BILL [address] [place] [address] * LAB HISTORICAL RESULTS-ONBASE (02/24/2010) Only the most recent of3 resultswithin the time period is included. 02/24/2010 Historical Provider LAB - CHEMISTRY [facility] Care Teams Ssn/Ssbn Assistant Navigator Relationship Specialty Start Date End Date Stacey Jay MD [address] [place] [address] PCP - General 02/03/15
--- OUTSIDE RECORDS SUMMARY | 2024-04-16 15:46 | XMS_ITS | Clinical Summary ---
Author Organization [facility] [address] Address [address] [place] [address] Care Team Providers Care Reflow Operator Name Role Phone Stacey Jay MD Primary Care Provider Filiberto Elder MD Unavailable [phone] Allergies No known active allergies Medications [...] (12/07/2021): Added automatically from request for surgery [id number] Essential hypertension 04/11/2020 director long term care current use of antiarrhythmic drug Assessment & [...] sotalol Assessment & Plan (03/04/2023 4:24 PM EXHAUST EMISSIONS AUTOMOTIVE TECHNICIAN): -remains compliant on sotalol -no medication changes [...] thromboprophylaxis Assessment & Plan (03/04/2023 4:24 PM EXHAUST EMISSIONS AUTOMOTIVE TECHNICIAN): -remains compliant on Xarelto therapy -denies any issues with bruising or bleeding -recommend continued therapy for thromboprophylaxis Assessment & Plan (12/12/2019 12:32 PM CDT): The patient has a [id number] score of 1 (annualized risk of stroke [...] visit Assessment & Plan (03/04/2023 4:23 PM EXHAUST EMISSIONS AUTOMOTIVE TECHNICIAN): -history of cardioversion -presents today denying any [...] obesity may make this procedure higher risk. Surgical History Surgery Date Site/Laterality Comments HYSTERECTOMY TONSILLECTOMY ANKLE FRACTURE SURGERY CARDIOVERSION Medical History Medical History Date Comments Thyroid disease Atrial fibrillation (CMS/HCC) (HCC) Hypertension Family History Medical History Relation Name Comments No Known Problems Brother No Known Problems Father Heart attack Maternal Grandfather Hypertension Mother Relation Name Status Comments Brother Alive Father Alive Maternal Grandfather Mother Alive Sister 1 Alive Sister 2 Alive Social History Tobacco Use Types Packs/Day Years [...] on file Legal Sex Female 10:41 PM EXHAUST EMISSIONS AUTOMOTIVE TECHNICIAN Gender Identity Not on file Sexual Orientation Not on file Obstetrics History Last Filed Vital Signs Vital Sign Reading [...] 10/21/2023 10:00 AM CDT Plan of Treatment Health Maintenance Due Date Last Done Comments Breast Cancer Screening-Mammogram 1959 Colon Cancer Screening-Colonoscopy 1959 Depression Screening 1959 Hepatitis C Screening 1959 DTaP/Tdap/Td Vaccine (1 - Tdap) 07/15/1970 Hepatitis B Screening 07/15/1977 Regular Well Visit/Exam 18-64 07/15/1977 Zoster Vaccine (1 of 2) 07/15/2009 Covid-19 Vaccine ( season) 2023 03/02/2021, 06/05/2020, 05/13/2020 Influenza Vaccine (#1) 2023 9, 12/17/2015, 01/07/2013, Additional history exists Pneumococcal vaccine <65 Aged Out No longer eligible based on patient's age to complete this topic Insurance [facility] HMO/PPO Address: [facility] [address] [place] [address] OPEN ACCESS CHOICE PLUS [facility] HMO/PPO Address: [address] [address] [place] [address] COMMER[employer] GENER[employer] COMPENSATION GENERIC [place] Advance Directives For more information, please contact: [phone] * Full Code (Latest Code Status on File) Date Activated Date Inactivated Comments 12/27/2021 7:19 PM 12/28/2021 8:10 PM Care Teams Reflow Operator Relationship Specialty Start Date End Date Stacey Jay MD [address] [email or web address] [address] [place] [address] PCP - General Family Medicine 12/01/18 [place] [address] [place] [address] Consulting Physician Urology 12/28/21
== END 2024-04-16 15:39 | disposition home or self-care (01) ==
PROVIDERS: PCP Family Medicine; Visit Provider Physician Assistant
DX: Z12.31 Encounter for screening mammogram for malignant neoplasm of breast (principal)
CPT/HCPCS: 77063; 77067